=== PATIENT | female | born 1965 | race American Indian/Alaskan Native ===

== ENCOUNTER 2017-09-22 13:30 | Emergency (ER) | payer OTHER ==
[2017-09-22 13:48] VITALS: BP 142/80; PULSE 80; RESP 18; TEMP 98.9; O2SAT 100
--- NOTE | 2017-09-22 14:14 | ED PDOC ---
Arrival/HPI - General Chief Complaint: Flu-like Symptoms Time Seen by Provider: 09/22/17 14:11 - History of Present Illness Narrative History of Present Illness (Text): 52 y/o F c PMHx HTN p/w cough, congestion x 5 days. Initial two days with fever , now resolved. Daughter diagnosed with influenza at home. Denies myalgias, chest pain, abdominal pain, vomiting, diarrhea, dysuria. Past Medical History - Infectious Disease Hx of Infectious Diseases: None - Cardiac Hx Hypertension: Yes - HEENT Other/Comment: [place] - Psychiatric Hx Substance Use: No - Surgical History Hx Section: Yes Hx Orthopedic Surgery: Yes (Right Wrist) Hx Thyroidectomy: Yes Family/Social History Family/Social History: No Known Family HX Smoking Status: Never Smoked Hx Alcohol Use: No Hx Substance Use: No Allergies/Home Meds Allergies/Adverse Reactions: Allergies No Known Allergies Allergy (Verified 09/22/17 13:48) Review of Systems - Physician Review All systems were reviewed & negative as marked: Yes - Review of Systems Cardiovascular: absent: Chest Pain Gastrointestinal: absent: Abdominal Pain Physical Exam - Physical Exam Narrative Physical Exam (Text): Constitutional: No acute distress. Head: Normocephalic. Atraumatic. Eyes: PERRL. ENT: Moist mucous membranes. Neck: Supple. Cardiovascular: Regular rate. Chest: No tenderness. Respiratory: Clear to auscultation bilaterally. GI: Soft. Nontender. Nondistended. Back: No CVA tenderness. Musculoskeletal: No tenderness or swelling of extremities. Skin: No rash. Neurologic: Alert, no focal deficit. Vital Signs Temp Pulse Resp BP Pulse Ox 09/22/17 13:45 98.9 F 80 18 142/80 100 Medical Decision Making ED Course and Treatment: Rapid influenza sent. Patient out of window for tamiflu treatment. Fever already self resolved. Patient appears well, CTA b/l, and normal vital signs. Will discharge home, instructed rest, PO fluids, instructed to return to ED for worsening dyspnea, pain, fever, vomiting, or any other problem. Disposition/Present on Arrival - Present on Arrival Any Indicators Present on Arrival: No History of DVT/PE: No History of Uncontrolled Diabetes: No Urinary Catheter: No History of Decub. Ulcer: No History Surgical Site Infection Following: None - Disposition Have Diagnosis and Disposition been Completed?: Yes Diagnosis: Influenza-like symptoms Disposition: HOME/ ROUTINE Disposition Time: 14:21 Patient Plan: Discharge Condition: STABLE Discharge Instructions (ExitCare): Influenza (ED) Prescriptions: Ibuprofen [Motrin] 1 tab PO Q6 #30 tab Forms: [facility] ([place])
== END 2017-09-22 14:36 | disposition home or self-care (01) ==
LOC: ED 13:30
DX: J11.1 Influenza due to unidentified influenza virus with other respiratory manifestations (principal)